=== PATIENT | male | born 1995 | race Caucasian/White ===

== ENCOUNTER 2016-10-13 15:14 | Emergency (ER) | payer BC ==
[2016-10-13 15:19] VITALS: BP 131/62; PULSE 58; TEMP 98.1; BMI 23.0
[2016-10-13] MEDS ORDERED: ONDANSETRON 4 MG/2 ML VIAL IVPUSH ONE ×2 (15:59→17:46)
--- NOTE | 2016-10-13 16:23 | PDOC ---
History of Present Illness - General Chief Complaint: Nausea/Vomiting Stated Complaint: VOMITING, DIZZINESS Time Seen by Provider: 10/13/16 15:52 History Source: Patient Exam Limitations: No Limitations - History of Present Illness Initial Comments: 10/13/16 16:18 CHIEF COMPLAINT: Vomiting HISTORY OF PRESENT ILLNESS: This is a 21 year old male with a history of epilepsy (last seizure 3 yrs ago) who presents complaining of nausea/vomiting and upper abdominal pain since Thursday. He denies fevers/chills, dysuria, constipation/diarrhea, and hematemesis. He has no recent travel or known sick contacts. Patient does not recall his PCP's name. REVIEW OF SYSTEMS: GENERAL/CONSTITUTIONAL: No fever or chills. No weakness. No weight change. HEAD, EYES, EARS, NOSE AND THROAT: No change in vision. No ear pain or discharge. No sore throat. CARDIOVASCULAR: No chest pain or palpitations. RESPIRATORY: No cough, wheezing, or shortness of breath. GASTROINTESTINAL: See HPI. GENITOURINARY: No dysuria, frequency, or change in urination. MUSCULOSKELETAL: No joint or muscle swelling or pain. No neck or back pain. SKIN: No rash or easy bruising. NEUROLOGIC: No headache, vertigo, loss of consciousness, or loss of sensation. PSYCHIATRIC: No depression or anxiety. ENDOCRINE: No increased thirst. No abnormal weight change. HEMATOLOGIC/LYMPHATIC: No anemia, easy bleeding, or history of blood clots. ALLERGIC/IMMUNOLOGIC: No hives or skin allergy. No latex allergy. PHYSICAL EXAM: GENERAL: The patient is awake, alert, and fully oriented, in no acute distress. HEAD: Normal with no signs of trauma. ENT: Pupils equal, round and reactive to light, extraocular movements intact, sclera anicteric, conjunctiva clear. Neck supple. LUNGS: Clear to auscultation bilaterally. Normal excursion. No respiratory distress or use of accessory muscles. CV: RRR, S1/S2, no MRG. Cap refill < 2 sec. ABDOMEN: Soft, non-distended, tender in epigastrium, no other focal tenderness. EXTREMITIES: Normal range of motion, no edema. NEUROLOGICAL: Normal speech, normal gait. CN II-XII grossly intact. PSYCH: Normal mood, normal affect. SKIN: Warm, dry, normal turgor, no rashes or lesions noted. Past History - Past Medical History Allergies/Adverse Reactions: Allergies Allergy/AdvReac Type Severity Reaction Status Date / Time No Known Allergies Allergy Verified 10/13/16 16:19 Seizures: Yes - Psycho/Social/Smoking Cessation Hx Anxiety: No Suicidal Ideation: No Smoking History: Never smoked Have you smoked in the past 12 months: No Information on smoking cessation initiated: No Hx Alcohol Use: No Drug/Substance Use Hx: No Substance Use Type: None *Physical Exam - Vital Signs Last Vital Signs Temp Pulse Resp BP Pulse Ox 98.1 F 58 L 20 131/62 100 10/13/16 15:16 10/13/16 15:16 10/13/16 15:16 10/13/16 15:16 10/13/16 15:16 ED Treatment Course - LABORATORY CBC & Chemistry Diagram: 10/13/16 16:09 10/13/16 16:09 Medical Decision Making - Medical Decision Making 10/13/16 16:39 A/P: 21 year old male with nausea/vomiting and epigastric pain. 1. Abdominal labs 2. IV fluids, Zofran, and Pepcid for symptomatic relief 3. Re-assess 10/13/16 18:19 Patient feeling better, tolerating water. Abdomen re-examined and is non-tender. Will dc with Pepcid, Zofran, and followup. *DC/Admit/Observation/Transfer Diagnosis at time of Disposition: Epigastric pain Vomiting Qualifiers: Vomiting type: unspecified Vomiting Intractability: non-intractable Nausea presence: with nausea Qualified Code(s): R11.2 - Nausea with vomiting, unspecified - Discharge Dispostion Disposition: HOME Condition at time of disposition: Improved Admit: No - Referrals Referrals: Anna Presley MD [Staff Physician] - - Patient Instructions Printed Discharge Instructions: DI for Bacterial Gastroenteritis -- Adult, Gastroenteritis Diet Additional Instructions: -You were seen today for vomiting and stomach pain. -Lab work is normal. -Take Pepcid and Zofran as prescribed. -Slowly introduce a bland diet (instructions enclosed). -Return for further evaluation if you develop worsening pain, if you are unable to keep down fluids, or if you have any other concerning symptoms. - Post Discharge Activity Work/School Note: Back to Work
[2016-10-13] MEDS ORDERED: SODIUM CHLORIDE 1,000 ML IV STA (16:24)
[2016-10-13] MEDS ORDERED: FAMOTIDINE 20 MG/50 ML IVPB 50 ML IVPB ONE ×2 (16:25→16:30)
[2016-10-13 16:46] LABS: BASOPHIL 0.3 % (0-2.0); EOSINOPHIL 0.1 % (0-4.5); MCH 32.1 pg (25.7-33.7); MCHC 34.1 g/dl (32.0-35.9); MEAN PLT VOLUME 10.1 fl (7.5-11.1); NEUTROPHILS 84.2 % (42.8-82.8); PLATELET COUNT 190 K/MM3 (134-434); RDW 13.8 % (11.9-15.9); WHITE BLOOD COUNT 7.6 K/mm3 (4.0-10.0)
[2016-10-13 17:19] LABS: ALBUMIN 4.5 g/dl (3.4-5.0); ALK PHOS 81 U/L (45-117); ANION GAP 10 (8-16); BILIRUBIN,TOTAL 1.4 mg/dL (0.2-1.0); CALCIUM 9.2 mg/dL (8.5-10.1); CO2 26 mmol/L (21-32); CREATININE 1.1 mg/dL (0.7-1.3); GLUCOSE,RANDOM 95 mg/dL (74-106); SGOT/AST 20 U/L (15-37); SGPT/ALT 53 U/L (12-78); TOT PROT 7.5 g/dl (6.4-8.2)
[2016-10-13] MEDS ORDERED: ONDANSETRON 4 MG/2 ML VIAL ONE (18:01)
== END 2016-10-13 18:45 | disposition home or self-care (01) ==
LOC: JER 15:14
PROC: 3E033GC Introduction of Other Therapeutic Substance into Peripheral Vein, Percutaneous Approach (ICD-10-PCS; principal; 2016-10-13)
PROC: 3E033GC Introduction of Other Therapeutic Substance into Peripheral Vein, Percutaneous Approach (ICD-10-PCS; 2016-10-13)
DX: K52.9 Noninfective gastroenteritis and colitis, unspecified (principal); Z86.69 Personal history of other diseases of the nervous system and sense organs
CPT/HCPCS: 36415; 80053; 83690; 85025; 99283-25